=== PATIENT | male | born 1975 | race Caucasian/White ===

== ENCOUNTER → 2016-08-30 | Outpatient (CLI) | payer BC ==
[~2016-08-30] MED LIST: GADAVIST IV PRN
--- NOTE | 2016-08-30 18:18 | DIAGNOSTIC IMAGING REPORT ---
MRI OF THE BRAIN COMBO CLINICAL HISTORY: Seizure. COMPARISON STUDY: No priors. TECHNIQUE: MRI of the brain was performed utilizing various T1 and T2-weighted sequences in the axial, sagittal, and coronal planes. Contrast-enhanced sequences were acquired following the administration of 11 cc of Gadavist. The examination is performed utilizing the seizure protocol. FINDINGS: Brain parenchyma: There are numerous foci of T2 signal abnormality within the subcortical and periventricular white matter. No associated abnormal enhancement is identified. There is no hemorrhage or mass effect. There is no restricted diffusion to suggest acute ischemia. No enhancing mass lesion is identified on the postcontrast images. Victor-white matter differentiation is preserved. No extra-axial fluid collection is seen. The cerebellar tonsils are normal in configuration. Hippocampi are normal and symmetric. Ventricles, sulci, and cisterns: Normal in configuration. Pituitary and sella: Unremarkable. Intracranial vasculature: Normal flow voids are maintained at the skull base. Orbits: The bony orbits are grossly intact. Orbital contents are normal in appearance. Sinuses and mastoids: A large retention cyst fills the right maxillary antrum. Mild mucosal thickening is seen within the ethmoid and right frontal sinuses. The mastoid air cells are clear. Calvarium: Unremarkable. Cervical cord: Partially visualized cervical spinal cord is normal in morphology and signal intensity. IMPRESSION: 1. There is no hemorrhage, enhancing mass, or evidence of acute ischemia. 2. There are numerous foci of T2 signal abnormality identified within the subcortical and periventricular white matter. No associated abnormal enhancement is seen. Although this could represent microangiopathic change, this would be significantly advanced for age. Differential considerations include a demyelinating process such as multiple sclerosis or possibly an infectious etiology such as Lyme disease. Clinical correlation will be required. Electronically signed by: Jose Raul Ratliff M.D. 08/30/2016 6:16 PM Dictated Date/Time: 08/30/2016 6:11 PM
== END | disposition home or self-care (01) ==
LOC: C.MRI 17:10
PROVIDERS: ATTEND Internal Medicine
DX: R56.9 Unspecified convulsions (principal)

== ENCOUNTER → 2016-10-05 | Outpatient (CLI) | payer BC ==
--- NOTE | 2016-10-06 17:54 | MOTOR CONDUCTION ---
CLINICAL DIAGNOSIS: Recent seizure. ELECTROENCEPHALOGRAM DIAGNOSIS: Essentially normal during wakefulness and brief episodic drowsiness. DESCRIPTION OF TRACING: This EEG was done as recording in laboratory and was of excellent technical quality with few or no muscle movement artifacts. Simultaneous video analysis of patient movement and behavior was recorded. Photic stimulation is performed. Hyperventilation is not. Drowsiness is seen episodically, but has never sustained and fully developed stages of sleep that are not recorded. Under these conditions, there is evidence for a normal appearing background rhythm in the alpha range of up to 10 Hz of maximum frequency and 30 microvolts of maximum amplitude. This is maximum posterior head regions bilaterally symmetrical. Polymorphic mid frequency theta activity seen over all head regions without clear focal or regional predominance. Anterior head region maximum bilaterally symmetrical low voltage fast activity in the beta range is present. Photic stimulation provokes a minimal driving response without a photomyogenic or photoparoxysmal component. Drowsiness is not associated with any significant EEG abnormalities. At no time during the waking tracing is there evidence for potentially epileptogenic activity in the form of polyspike or spike wave bursts, focal sharp waves or focal spikes nor is similar activity seen during the very brief episodes of drowsiness. INTERPRETATION: This EEG is essentially normal during wakefulness and brief duration of drowsiness without evidence for focal or generalized encephalopathy and without evidence for potentially epileptogenic activity but the absence of the latter does not exclude the diagnosis of seizure disorder and clinical correlation is required.
== END | disposition home or self-care (01) ==
LOC: C.NEUR 14:15
PROVIDERS: ATTEND Internal Medicine
DX: R56.9 Unspecified convulsions (principal)